=== PATIENT | female | born 1945 | race Caucasian/White ===

== ENCOUNTER → 2020-10-24 | Outpatient (CLI) | payer MEDICARE | LOC: DX 08:35 | PROVIDERS: ATTEND Family Medicine | DX: M81.0 Age-related osteoporosis without current pathological fracture (principal) | CPT/HCPCS: 77080 ==

== ENCOUNTER → 2024-05-04 | Outpatient (RCR) | payer MEDICARE ==
[~2024-05-04] MED LIST: HYDROCODON-ACE1 EA11 PO
== END ==
LOC: OT 09:35
PROVIDERS: ATTEND Specialist
DX: S42.232A 3-part fracture of surgical neck of left humerus, initial encounter for closed fracture (principal)

== ENCOUNTER 2024-05-27 13:51 | Outpatient (RCR) | payer MEDICARE | END 2024-06-04 | LOC: OT 13:51 | PROVIDERS: ATTEND Specialist | DX: S42.232A 3-part fracture of surgical neck of left humerus, initial encounter for closed fracture (principal); V19.3XXA Pedal cyclist (driver) (passenger) injured in unspecified nontraffic accident, initial encounter; Y93.55 Activity, bike riding; Y92.89 Other specified places as the place of occurrence of the external cause; M25.512 Pain in left shoulder; M25.612 Stiffness of left shoulder, not elsewhere classified; R53.1 Weakness ==

== ENCOUNTER 2024-06-08 06:21 | Outpatient (RCR) | payer MEDICARE | END 2024-07-04 | LOC: OT 06:21 | PROVIDERS: ATTEND Specialist | DX: S42.212A Unspecified displaced fracture of surgical neck of left humerus, initial encounter for closed fracture (principal) ==